=== PATIENT | male | born 1990 | race Two or more races ===

== ENCOUNTER 2020-09-23 10:50 | Emergency (ER) | payer SELFPAY ==
[~2020-09-23] VITALS: Ht 172.7 cm; Wt 77.1 kg
[2020-09-23] MEDS ORDERED: PRED50TA PO (11:09)
[2020-09-23] MEDS ORDERED: ALBU8.5H8 INH (11:09)
[2020-09-23] MEDS ORDERED: predniSONE 20 MG TABLET PO ONE (11:15)
--- NOTE | 2020-09-23 11:18 | NUR ---
Patient discharged to home in stable condition. Written and verbal after care instructions given. Patient verbalizes understanding of instructions. Stressed follow up or return to ER for worsening s/s.
[2020-09-23] MEDS ORDERED: predniSONE 50 MG TABLET ONE (11:19)
[2020-09-23] MEDS ORDERED: predniSONE 10 MG TABLET ONE (11:19)
[2020-09-23 11:26] VITALS: BP 112/74
== END 2020-09-23 11:27 | disposition home or self-care (01) ==
LOC: ER 10:50
DX: J45.909 Unspecified asthma, uncomplicated (principal); Z76.0 Encounter for issue of repeat prescription; J02.9 Acute pharyngitis, unspecified
CPT/HCPCS: 99283; J7512 ×2; A4663